=== PATIENT | male | born 1990 | race Caucasian/White ===

== ENCOUNTER 2017-06-02 17:25 | Inpatient (IN) | payer OTHER ==
[2017-06-02 18:38] VITALS: BMI 20.5
--- NOTE | 2017-06-02 21:17 | HP ---
Admission [facility] Chief Complaint: SEEKING REHAB SERVICES Allergies/Adverse Reactions: Allergies Allergy/AdvReac Type Severity Reaction Status Date / Time No Known Allergies Allergy Verified 06/02/17 21:12 History of Present Illness: 27 Y.O. MAN WITH AN EXTENSIVE HISTORY OF OPIATE DEPENDENCE IS HERE SEEKING REHAB SERVICES. HE COMPLETED DETOX AT [facility] [place]. HE DOES NOT HAVE A SIGNIFICANT PERIOD CLEAN. Exam Limitations: No Limitations - Ebola screening Have you traveled outside of the country in the last 21 days: No (N) Have you had contact with anyone from an Ebola affected area: No Have you been sick,other than usual withdrawal symptoms: No Do you have a fever: No - Review of Systems Constitutional: No Symptoms Reported EENT: reports: No Symptoms Reported Respiratory: reports: Wheezing Cardiac: reports: No Symptoms Reported GI: reports: No Symptoms Reported : reports: No Symptoms Reported Musculoskeletal: reports: No Symptoms Reported Integumentary: reports: No Symptoms Reported Neuro: reports: No Symptoms reported Endocrine: reports: No Symptoms Reported Hematology: reports: No Symptoms Reported Psychiatric: reports: Judgement Intact, Mood/Affect Appropiate, Orientated x3 Other Systems: Reviewed and Negative Patient History - Patient Medical History Hx Anemia: No Hx Asthma: Yes Hx Chronic Obstructive Pulmonary Disease (COPD): No Hx Cancer: No Hx Cardiac Disorders: No Hx Congestive Heart Failure: No Hx Hypertension: No Hx Hypercholesterolemia: No Hx Pacemaker: No HX Cerebrovascular Accident: No Hx Seizures: No Hx Dementia: No Hx Diabetes: No Hx Gastrointestinal Disorders: No Hx Liver Disease: No Hx Genitourinary Disorders: No Hx Sexually Transmitted Disorders: No Hx Renal Disease (ESRD): No Hx Thyroid Disease: No Hx Human Immunodeficiency Virus (HIV): No Hx Hepatitis C: No Hx Depression: No Hx Suicide Attempt: No Hx Bipolar Disorder: No Hx Schizophrenia: No - Patient Surgical History Past Surgical History: Yes Hx Abdominal Surgery: Yes (HERNIA REPAIR @ 16 Y.O. ) Anesthesia Reaction: No - PPD History Previous Implant?: Yes Documented Results: Negative w/o proof PPD to be Administered?: Yes - Reproductive History Patient is a Female of Child Bearing Age (11 -55 yrs old): No - Smoking Cessation Smoking history: Current every day smoker Have you smoked in the past 12 months: Yes Aproximately how many cigarettes per day: 10 Initiated information on smoking cessation: Yes 'Breaking Loose' booklet given: 06/02/17 - Substance & Tx. History Hx Alcohol Use: No Hx Substance Use: Yes Substance Use Type: Heroin Hx Substance Use Treatment: Yes (COMPLETED DETOX AT [facility] [place] 06/02/17) - Substances Abused Heroin Route: Injection Frequency: Daily Amount used: 3-5 BAGS Age of first use: 25 Date of Last Use: 05/26/17 Family Disease History - Family Disease History Family History: Denies Admission Physical Exam [facility] - Vital Signs Vital Signs: Vital Signs - 24 hr 06/02/17 18:35 Temperature 97.2 F L Pulse Rate 107 H Respiratory 18 Rate Blood Pressure 105/61 - Physical General Appearance: Yes: No Apparent Distress, Nourished, Appropriately Dressed HEENTM: Yes: Hearing grossly Normal, Normocephalic, Normal Voice Respiratory: Yes: Chest Non-Tender, Lungs Clear, Normal Breath Sounds, No Respiratory Distress, No Accessory Muscle Use Neck: Yes: No masses,lesions,Nodules, Trachea in good position Breast: Yes: Breast Exam Deferred Cardiology: Yes: Regular Rhythm, Tachycardia Abdominal: Yes: Normal Bowel Sounds, Non Tender, Flat, Soft Genitourinary: Yes: Other (NO COMPLAINTS REPORTED) Back: Yes: Normal Inspection Extremities: Yes: Normal Capillary Refill, Normal Inspection, Normal Range of Motion, Non-Tender Neurological: Yes: [place] man II-XII NML intact, Fully Oriented, Alert, Motor Strength 5/5, Normal Mood/Affect, Normal Response Integumentary: Yes: Track [place] Lymphatic: Yes: Within Normal Limits - Diagnostic (1) Opioid dependence with withdrawal Current Visit: Yes Status: Chronic (2) Asthma Current Visit: Yes Status: Chronic (3) Nicotine dependence Current Visit: Yes Status: Chronic Cleared for Admission [facility] - Detox or Rehab [facility] Level of Care: Observation Bed Claeared for Rehab Admission: Yes [facility] Breath Alcohol Content Breath Alcohol Content: 0 Urine Drug Screen - Results Drug Screen Negative: No Urine Drug Screen Results: THC-Marijuana, SHANELL-Cocaine, OPI-Opiates, BZO- Benzodiazepines, MTD-Methadone
[2017-06-02] MEDS ORDERED: MENTHOL/PHENOL 1 EACH UD MM PRN (21:28)
[2017-06-02] MEDS ORDERED: MAGNESIUM HYDROX 2400MG/30ML ORAL SUSPENSION 30 ML CUP PO PRN (21:28)
[2017-06-02] MEDS ORDERED: guaiFENesin/D-METHORPHAN HB 10 ML UNIT-DOSE CUPS PO PRN (21:28)
[2017-06-02] MEDS ORDERED: MAGNESIUM CITRATE 300 ML BOTTLE PO PRN (21:28)
[2017-06-02] MEDS ORDERED: hydrOXYzine PAMOATE 50 MG CAPSULE (FP) PO PRN (21:28)
[2017-06-02] MEDS ORDERED: IBUPROFEN 400 MG TABLET (FP) PO PRN (21:28)
[2017-06-02] MEDS ORDERED: LOPERAMIDE HCL 2 MG CAPSULE PO PRN (21:28)
[2017-06-02] MEDS ORDERED: P-EPHED 60MG/TRIPROLIDI 2.5MG TABLET PO PRN (21:28)
[2017-06-02] MEDS ORDERED: MAG HYDROX/AL HYDROX/SIMETH 30 ML UNIT-DOSE CUP PO PRN (21:28)
[2017-06-02] MEDS ORDERED: ACETAMINOPHEN 325 MG TABLET (FP) PO PRN (21:28)
[2017-06-02] MEDS ORDERED: ALBUTEROL SO4 6.7 GM HFA INHALER IH PRN (21:30)
[2017-06-02] MEDS: THIAMINE HCL 100 MG TABLET (FP) PO SCH (23:36)
[2017-06-03] MEDS: diphenhydrAMINE HCL 50 MG CAPSULE PO PRN ×3 (00:04→21:38)
[2017-06-03 00:47] LABS: URINE APPEARANCE CLEAR; URINE BILIRUBIN NEGATIVE (NEGATIVE); URINE BLOOD NEGATIVE (NEGATIVE); URINE COLOR YELLOW; URINE GLUCOSE (UA) NEGATIVE (NEGATIVE); URINE KETONE NEGATIVE (NEGATIVE); URINE LEUK ESTERASE NEGATIVE (NEGATIVE); URINE NITRITE NEGATIVE (NEGATIVE); URINE PROTEIN NEGATIVE (NEGATIVE); URINE UROBILINOGEN NEGATIVE mg/dL (0.2-1.0)
--- NOTE | 2017-06-03 06:29 | HP ---
Psychiatrist Admission - Data Date of interview: 06/03/17 Admission source: [facility] detox Identifying data: This is the first [facility] admission for this 27 years old single male, father of a 7 years old daughter, unemployed with no source of income, living with family Medical History: Significant for history of surgery for right inguinal hernia repair at age 16. Smokes 10 cigarettes daily Psychiatric History: Denies history of previous psychiatric treatment Physical/Sexual Abuse/Trauma History: Denies emotional, physical or sexual abuse as well as DV relationship. No service Additional Comment: Reports history of 3 misdemeanor arrests. No probation Vital Signs: Vital Signs - 24 hr 06/02/17 06/03/17 06/03/17 18:35 00:30 03:30 Temperature 97.2 F L Pulse Rate 107 H Respiratory 18 18 18 Rate Blood Pressure 105/61 Allergies/Adverse Reactions: Allergies Allergy/AdvReac Type Severity Reaction Status Date / Time No Known Allergies Allergy Verified 06/02/17 22:02 Date of last physical exam: 06/02/17 Concur with the findings of this exam: Yes - Substance Abuse/Tx History Hx Alcohol Use: No Hx Substance Use: Yes Substance Use Type: Heroin (Started using heroin at age 25, consumes 3-5 bags daily. Last used on 05/26/17) Hx Substance Use Treatment: Yes (Just completed inpt detox @ [facility]) - Admission Criteria Previous failed treatment: No Poor recovery environment: Yes Comorbidities: Yes Lacks judgement: Yes Mental Status Exam - Mental Status Exam Alert and Oriented to: Time, Place, Person Cognitive Function: Fair Patient Appearance: Well Groomed Mood: Hopeful, Euthymic Patient Behavior: Cooperative Speech Pattern: Clear Voice Loudness: Normal Thought Process: Intact, Goal Oriented Thought Disorder: Not Present Hallucinations: Denies Suicidal Ideation: Denies Homicidal Ideation: Denies Insight/Judgement: Fair Sleep: Well Appetite: Good Muscle strength/Tone: Normal Gait/Station: Normal Psychiatric Findings - Problem List ([place] 1, 2,3) (1) Opioid dependence Current Visit: Yes Status: Acute (2) Nicotine dependence Current Visit: Yes Status: Chronic (3) Asthma Current Visit: Yes Status: Chronic - Initial Treatment Plan Initial Treatment Plan: Monitor progress
[2017-06-03 09:41] LABS: MCH 28.7 pg (25.7-33.7); MCHC 33.1 g/dl (32.0-35.9); MEAN CELL VOLUME 86.7 fl (80-96); MEAN PLT VOLUME 8.6 fl (7.5-11.1); PLATELET COUNT 241 K/MM3 (134-434); RDW 13.5 % (11.9-15.9); WHITE BLOOD COUNT 6.5 K/mm3 (4.0-10.0)
[2017-06-03 09:53] LABS: ALBUMIN 3.3 g/dl (3.4-5.0); ALK PHOS 77 U/L (45-117); ANION GAP 6 (8-16); BILIRUBIN,TOTAL 0.6 mg/dL (0.2-1.0); CALCIUM 9.1 mg/dL (8.5-10.1); CO2 33 mmol/L (21-32); CREATININE 0.9 mg/dL (0.7-1.3); GLUCOSE,RANDOM 85 mg/dL (74-106); SGOT/AST 62 U/L (15-37); SGPT/ALT 99 U/L (12-78)
--- NOTE | 2017-06-03 10:25 | EKG ---
Test Reason : Blood Pressure : / mmHG Vent. Rate : 081 BPM Atrial Rate : 081 BPM P-R Int : 150 ms QRS Dur : 088 ms QT Int : 380 ms P-R-T Axes : 073 045 051 degrees QTc Int : 441 ms NORMAL SINUS RHYTHM EARLY REPOLARIZATION NORMAL ECG NO PREVIOUS ECGS AVAILABLE Confirmed by DANNIE WEN MD ([id number]) on 06/03/2017 10:25:04 AM Referred By: Confirmed By:DANNIE WEN MD
[2017-06-03] MEDS: PRENATAL VITAMINS W/ FOLIC ACID TABLET (FP) PO SCH (10:56)
[2017-06-03] MEDS: THIAMINE HCL 100 MG TABLET (FP) PO SCH (21:02)
[2017-06-04 06:58] VITALS: BP 117/74; PULSE 94; TEMP 98.5
[2017-06-04] MEDS: PRENATAL VITAMINS W/ FOLIC ACID TABLET (FP) PO SCH (09:29)
--- NOTE | 2017-06-04 10:55 | PN ---
Psychiatric Progress Note Vital Signs: Vital Signs Period Temp Pulse Resp BP Sys/Dominguez Pulse Ox Last 24 Hr 98.5 F 94 18-18 117/74 Date of Session: 06/04/17 Chief Complaint:: Insomnia HPI: Patient addressing Opoid Dependence comorbid with Nicotine Dependence ROS: Asthma Current Medications: Active Medications Generic Name Dose Route Start Last Admin Trade Name Freq PRN Reason Stop Dose Admin Acetaminophen 650 mg 06/02/17 21:28 Tylenol - PO Q4H PRN PAIN Al Hydroxide/Mg Hydroxide 30 ml 06/02/17 21:28 Mylanta Oral Suspension - PO Q6H PRN DYSPEPSIA Albuterol Sulfate 2 puff 06/02/17 21:30 Ventolin Hfa Inhaler - IH Q4H PRN SHORT OF BREATH/WHEEZING Diphenhydramine HCl 50 mg 06/02/17 21:28 06/03/17 21:38 Benadryl - PO 50 mg HSMR1 PRN Administration INSOMNIA Eucalyptus/Menthol/Phenol/Sorbitol 1 each 06/02/17 21:28 Cepastat Lozenge - MM Q4H PRN SORE THROAT Guaifenesin 10 ml 06/02/17 21:28 Robitussin Dm - PO Q6H PRN COUGH Hydroxyzine Pamoate 50 mg 06/02/17 21:28 06/04/17 09:28 Vistaril - PO 50 mg Q4H PRN Administration AGITATION Ibuprofen 400 mg 06/02/17 21:28 Motrin - PO Q6H PRN SEVERE PAIN Loperamide HCl 4 mg 06/02/17 21:28 Imodium - PO Q6H PRN DIARRHEA Magnesium Citrate 300 ml 06/02/17 21:28 Citroma - PO Q48H PRN CONSTIPATION Magnesium Hydroxide 30 ml 06/02/17 21:28 Milk Of Magnesia - PO DAILY PRN CONSTIPATION Multivit/Folic Acid/Iron 1 tab 06/03/17 10:00 06/04/17 09:29 Vitamins (Sjr) - PO 1 tab DAILY CHAPO Administration Pseudoephedrine/Triprolidine 1 combo 06/02/17 21:28 Actifed - PO TID PRN NASAL CONGESTION Thiamine HCl 100 mg 06/02/17 22:00 06/03/17 21:02 Vitamin B1 - PO 100 mg HS CHAPO Administration Medication(s) Change(s): Start Belsomra 10 mg po HS prn for insomnia Current Side Effect: No Lab tests ordered: Yes Lab tests reviewed: Yes Provider note:: Patient reports experiencing difficulty to sleep. Told science writer that he has been sleeping poorly despite taking Benadryl. Requests to be ordered something stronger. Hypnotic properties as wel as adverse-efects of Belsomra discussed with patient and he agreed to take it Total face to face time:: 25 Mental Status Exam - Mental Status Exam Alert and Oriented to: Time, Place, Person Cognitive Function: Fair Patient Appearance: Well Groomed Mood: Hopeful, Euthymic Affect: Appropriate Patient Behavior: Cooperative Speech Pattern: Clear Voice Loudness: Normal Thought Process: Intact, Goal Oriented Thought Disorder: Not Present Hallucinations: Denies Suicidal Ideation: Denies Homicidal Ideation: Denies Insight/Judgement: Fair Sleep: Poorly Appetite: Good Muscle strength/Tone: Normal Gait/Station: Normal Psychiatric Treatment Plan - Problem List (1) Opioid dependence Current Visit: Yes (2) Nicotine dependence Current Visit: Yes (3) Asthma Current Visit: Yes Initial treatment plan: 1) Start Belsomra 10 mg po HS prn for insomnia. 2) Monitor progress
[2017-06-04] MEDS ORDERED: CYCLOBENZAPRINE HCL 10 MG TABLET (FP) PO SCH (14:00)
[2017-06-04] MEDS ORDERED: SUVOREXANT 10 MG TABLET PO PRN (22:00)
== END 2017-06-04 16:25 | disposition left against medical advice (07) | DRG 770 ==
LOC: YASAS 17:25 → Y3W 20:41
PROVIDERS: ADMIT Psychiatry & Neurology Psychiatry; ATTEND Psychiatry & Neurology Psychiatry
PROC: HZ42ZZZ Group Counseling for Substance Abuse Treatment, Cognitive-Behavioral (ICD-10-PCS; principal; 2017-06-02)
DX: F11.20 Opioid dependence, uncomplicated (principal); F17.210 Nicotine dependence, cigarettes, uncomplicated; J45.909 Unspecified asthma, uncomplicated
CPT/HCPCS: 36415; 80053; 81003; 85027; 86593; 93005; 93010